=== PATIENT | male | born 1980 | race Caucasian/White ===

== ENCOUNTER 2016-07-29 17:50 | Emergency (ER) | payer SELFPAY ==
[~2016-07-29] VITALS: Ht 180.3 cm; Wt 80.0 kg
[2016-07-29 17:52] VITALS: BP 132/85; PULSE 97; RESP 12; TEMP 98.2; O2SAT 98
[2016-07-29] MEDS ORDERED: ROBA750T PO (19:15)
[2016-07-29] MEDS ORDERED: HYDR-3533 PO (19:15)
--- NOTE | 2016-07-29 19:21 | PD ---
HPI Chief Complaint: Back/ Neck Pain or Injury Time Seen by Provider: 19:15 Travel History International Travel<30 days: No Contact w/Intl Traveler<30days: No Traveled to known affect area: No History of Present Illness HPI 36-year-old white male presents to emergency Department with complaints of lower back pain. He states that he had injury on Friday. He was horse playing with friends. He was doing somersaults and then landed into the feet of another individual. He states that this individual's feet struck him right in his lower back as he attempted to flip. He had sudden severe pain. He had to lay on the floor for approximately 5 or 10 minutes without moving. He states that the pain is been moderate to severe. Diffusely across his lower back into the right buttocks. He denies any acute bowel or bladder changes. He 's been eating and drinking normally. He denies any focal weakness. He states that he feels slight tingling in his right buttocks but has no loss of sensation. Denies any prior history of back problems. He denies any head injury. No neck pain. No upper back pain. PFSH Past Medical History Medical History: Denies Significant Hx Tetanus Vaccination: < 5 Years Past Surgical History Surgical History: No Previous Surgery Social History Alcohol Use: Yes Tobacco Use: Yes Substance Use: No Allergies-Medications (Allergen,Severity, Reaction): Coded Allergies: No Known Allergies (Unverified , 07/29/16) Reported Meds & Prescriptions Reported Meds & Active Scripts Active Lortab (Hydrocodone-Acetaminophen) 5-325 Mg Tab 1 Tab PO Q6H PRN Robaxin (Methocarbamol) 750 Mg Tab 1,500 Mg PO TID 10 Days Review of Systems Except as stated in HPI: all other systems reviewed are Neg Physical Exam Narrative GENERAL: Well-developed, well-nourished in no apparent distress. Nontoxic appearing. HEAD: Normocephalic, atraumatic. EYES: Pupils equal round and reactive. Extraocular motions intact. No scleral icterus. No injection or drainage. ENT: Nose clear. Throat without erythema, tonsillar hypertrophy or exudate. Uvula midline. Airway patent. NECK: Trachea midline. Supple, nontender, moves head freely. No central bony tenderness or spasm. CARDIOVASCULAR: Regular rate and rhythm without murmurs, gallops, or rubs. RESPIRATORY: Clear to auscultation. Breath sounds equal bilaterally. No wheezes , rales, or rhonchi. GASTROINTESTINAL: Abdomen soft, non-tender, nondistended. No hepato-splenomegaly , or palpable masses. No guarding. EXTREMITIES: No clubbing, cyanosis, or edema. No joint tenderness. BACK: No central bony tenderness to palpation of dorsal lumbar spine. The patient has bilateral paraspinal tenderness and mild spasm in the lower lumbar region. Negative straight leg raise bilaterally. No saddle anesthesia. Deep tendon reflexes are 3+ bilaterally. Good strength. Patient move slowly. He has decreased range of motion due to pain. Without deformity. No flank tenderness. NEUROLOGICAL: Awake, alert and oriented x 3 .Cranial nerves grossly intact. Motor and sensory grossly within normal limits. Normal speech. Data Data Last Documented VS Vital Signs Date Time Temp Pulse Resp B/P Pulse Ox O2 Delivery O2 Flow Rate FiO2 07/29/16 17:52 98.2 97 12 132/85 98 Room Air Orders Spine, Lumbar - Ltd (Ap & Lat) (07/29/16 ) Sacrum And Coccyx (07/29/16 ) MDM Medical Decision Making Medical Screen Exam Complete: Yes Emergency Medical Condition: Yes Medical Record Reviewed: Yes Differential Diagnosis MDM: High Differential diagnoses: AAA,Fracture, sprain, strain, HNP, nerve or vascular injury, epidural abscess, pilonidal cyst, pyelonephritis, UTI, nephrolithiasis, ureterolithiasis Narrative Course This is acute back strain/contusion I explained to the patient that he should probably take a few days off from work. He states that he does not want to. He wants to return to work. I explained to him that he cannot take the medications that I'm prescribing for him while he is at work. He verbally states understanding. He agreed to take Motrin at home and at work. Diagnosis Primary Impression: ACUTE BACK STRAIN/CONTUSION Patient Instructions: General Instructions Departure Forms: Tests/Procedures, Work Release Special Instructions: Light-duty 5 days. No operating any heavy machinery or driving a vehicle under the influence of medications. Additional Instructions: Rest. Ice for the next 3 days followed by heat . 4 Advil 3 times daily. Robaxin and Lortab. Follow-up with a primary care doctor in one week. Return to the ER for emergencies. Med/Other Pt SpecificInfo: Prescription(s) given Scripts Hydrocodone-Acetaminophen (Lortab)5-325 Mg Tab1 Tab PO Q6H PRN (PAIN) #20 TAB Prov:Guzman Alcocer MD 07/29/16 Methocarbamol (Robaxin)750 Mg Tab1,500 Mg PO TID 10 Days Prov:Guzman Alcocer MD 07/29/16 Disposition: 01 DISCHARGE HOME Condition: Stable Terry Odonnell Jul 29, 2016 19:21
--- NOTE | 2016-07-29 19:45 | RADRPT ---
EXAM DATE/TIME: 07/29/2016 18:35 [facility] COMPARISON: No previous studies available for comparison. INDICATIONS : Pain following fall. MEDICAL HISTORY : None. SURGICAL HISTORY : None. ENCOUNTER: Initial ACUITY: 3 days PAIN SCORE: 8/10 LOCATION: Lumbar. FINDINGS: Two view examination was performed. There are five non-rib bearing vertebral bodies. The vertebral bodies are in normal alignment without evidence of subluxation or scoliosis. The disc spaces are dionne ntained. The pedicles are intact. Bony mineralization is normal. No fracture is identified. There is a mild scoliosis. CONCLUSION: Mild scoliosis with no underlying bony abnormality. Cristi Stone MD on July 29, 2016 at 19:43 Board Certified Radiologist. This report was verified electronically.
--- NOTE | 2016-07-29 19:45 | RADRPT ---
EXAM DATE/TIME: 07/29/2016 18:36 [facility] COMPARISON: No previous studies available for comparison. INDICATIONS : Pain following fall. MEDICAL HISTORY : None. SURGICAL HISTORY : None. ENCOUNTER: Initial ACUITY: 3 days PAIN SCORE: 8/10 LOCATION: Sacrum, Coccyx FINDINGS: Two-view examination of the sacrum and coccyx demonstrates no evidence of fracture or malalignment. The sacral ala and foramina appear symmetric and intact. The coccyx appears unremarkable. The preve rtebral soft tissues are within normal limits. CONCLUSION: Negative trauma study. Cristi Stone MD on July 29, 2016 at 19:44 Board Certified Radiologist. This report was verified electronically.
== END 2016-07-29 19:29 | disposition home or self-care (01) ==
LOC: NEPB 17:50
DX: S39.012A Strain of muscle, fascia and tendon of lower back, initial encounter (principal); R20.2 Paresthesia of skin; W50.1XXA Accidental kick by another person, initial encounter; Y93.83 Activity, rough housing and horseplay; Z72.0 Tobacco use
CPT/HCPCS: 72100; 72220; 99283